=== PATIENT | female | born 1985 | race Caucasian/White ===

== ENCOUNTER 2019-11-04 10:05 | Inpatient (IN) | payer OTHER ==
[~2019-11-04] VITALS: Ht 162 cm; Wt 71.2 kg
[~2019-11-04 10:05] MED LIST: IBUP-2071 PO; PREN-217 PO; PREN1TAB80 PO
[2019-11-04] MEDS ORDERED: RINGERS SOLUTION,LACTATED 1,000 ML IV PRN (10:23)
[2019-11-04] MEDS: RINGERS SOLUTION,LACTATED 1,000 ML IV SCH ×2 (10:23→23:10)
[2019-11-04] MEDS ORDERED: OXYTOCIN 30 UNITS/LACT RINGERS 500 ML IV ONE (10:23)
[2019-11-04] MEDS ORDERED: FentaNYL CITRATE-PF 100 MCG/2 ML VIAL IVP PRN (10:30)
[2019-11-04] MEDS ORDERED: CARBOPROST TROMETHAMINE 250 MCG/ML AMP IM PRN (10:30)
[2019-11-04] MEDS ORDERED: CITRIC ACID/SODIUM CITRATE 30 ML SOLUTION UDCUP PO PRN (10:30)
[2019-11-04] MEDS ORDERED: LIDOCAINE/PF 1% 30 ML VIAL INJ PRN (10:30)
[2019-11-04] MEDS ORDERED: METOCLOPRAMIDE HCL 5 MG/ML 2 ML VIAL IVP PRN (10:30)
[2019-11-04] MEDS ORDERED: METHYLERGONOVINE MALEATE 0.2 MG/ML VIAL IM PRN (10:30)
[2019-11-04] MEDS ORDERED: MISOPROSTOL 50 MCG TABLET PO SCH (11:15)
[2019-11-04] MEDS ORDERED: AMPICILLIN SODIUM 2 GM/NS 100 ML IV ONE (11:15)
[2019-11-04 11:57] VITALS: BP 109/51
[2019-11-04 12:07] LABS: BASOPHILS % (AUTO) 0.3 % (0.0-2.0); EOSINOPHILS % (AUTO) 0.2 % (1.0-6.0); HEMATOCRIT 25.7 % (36-46); HEMOGLOBIN 8.6 g/dL (12.0-16.0); LYMPHOCYTES # (AUTO) 1.3 K/uL (1.0-4.8); LYMPHOCYTES % (AUTO) 15.2 % (22.0-44.0); MEAN CORPUSCULAR HEMOGLOBIN 25.2 pg (26.0-34.0); MEAN CORPUSCULAR HGB CONC 33.5 G/dL (31.0-37.0); MEAN CORPUSCULAR VOLUME 75 fL (80-100); MONOCYTES # (AUTO) 0.6 K/uL (0.1-1.0); MONOCYTES % (AUTO) 7.6 % (2.0-9.0); NEUTROPHILS # (AUTO) 6.4 K/uL (1.8-7.7); NEUTROPHILS % (AUTO) 76.7 % (40.0-70.0); PLATELET COUNT (AUTO) 247 K/uL (150-450); RED BLOOD CELL COUNT(AUTO) 3.43 MIL/uL (4.00-5.20); RED CELL DISTRIBUTION WIDTH 15.3 % (11.5-14.5)
[2019-11-04] MEDS: AMPICILLIN SODIUM 1 GM/NS 50 ML IV SCH ×3 (15:51→23:53)
[2019-11-04] MEDS ORDERED: OXYGEN THERAPY IH SCH (20:00)
[2019-11-05] MEDS ORDERED: ROPIVACAINE HCL/PF 0.2% 100 ML ED ONE (01:20)
[2019-11-05] MEDS ORDERED: LIDOCAINE/PF 2% 5 ML VIAL ONE (01:20)
[2019-11-05] MEDS ORDERED: ROPIVACAINE HCL/PF 0.2% 100 ML ED PRN (01:45)
[2019-11-05] MEDS ORDERED: ONDANSETRON HCL 4 MG/2 ML VIAL IVP PRN (01:45)
[2019-11-05] MEDS ORDERED: DiphenhydrAMINE HCL 50 MG/ML VIAL IVP PRN (01:45)
[2019-11-05] MEDS ORDERED: NALBUPHINE HCL 10 MG/ML VIAL IVP PRN (01:45)
[2019-11-05] MEDS: AMPICILLIN SODIUM 1 GM/NS 50 ML IV SCH (03:54)
[2019-11-05] MEDS ORDERED: OXYTOCIN 30 UNITS/LACT RINGERS 500 ML IV ONE (05:35)
[2019-11-05] MEDS ORDERED: OxyCODONE HCL/ACETAMINOPHEN 5-325 MG TABLET PO PRN ×2 (05:45)
[2019-11-05] MEDS ORDERED: BENZOCAINE 20%/MENTHOL 56 GM SPRAY CANISTER TP PRN (05:45)
[2019-11-05] MEDS ORDERED: LIDOCAINE/PF 1% 30 ML VIAL INJ PRN (05:45)
[2019-11-05] MEDS ORDERED: LANOLIN 7 GM OINTMENT TP PRN (05:45)
[2019-11-05] MEDS ORDERED: GLYCERIN/WITCH HAZEL LEAF 40 PADS JAR TP PRN (05:45)
[2019-11-05] MEDS: IBUPROFEN 800 MG TABLET PO PRN ×2 (08:17→17:34)
[2019-11-05] MEDS ORDERED: INFLUENZA VIRUS VACCINE QVS 2019-20 (3YR+)/PF 60 MCG/0.5 ML SYRINGE IM ONE (11:15)
[2019-11-05] MEDS: MAGNESIUM HYDROXIDE SUSPENSION 30 ML UDCUP PO PRN (21:31)
[2019-11-06] MEDS: IBUPROFEN 800 MG TABLET PO PRN ×2 (00:05→10:01)
[2019-11-06 07:03] LABS: BASOPHILS % (AUTO) 0.4 % (0.0-2.0); EOSINOPHILS % (AUTO) 0.8 % (1.0-6.0); HEMATOCRIT 23.6 % (36-46); HEMOGLOBIN 7.6 g/dL (12.0-16.0); LYMPHOCYTES # (AUTO) 2.2 K/uL (1.0-4.8); LYMPHOCYTES % (AUTO) 20.2 % (22.0-44.0); MEAN CORPUSCULAR HEMOGLOBIN 24.3 pg (26.0-34.0); MEAN CORPUSCULAR HGB CONC 32.1 G/dL (31.0-37.0); MEAN CORPUSCULAR VOLUME 76 fL (80-100); MONOCYTES # (AUTO) 0.8 K/uL (0.1-1.0); MONOCYTES % (AUTO) 7.5 % (2.0-9.0); NEUTROPHILS # (AUTO) 7.6 K/uL (1.8-7.7); NEUTROPHILS % (AUTO) 71.1 % (40.0-70.0); PLATELET COUNT (AUTO)-OB 216 K/uL (150-450); RED BLOOD CELL COUNT(AUTO) 3.12 MIL/uL (4.00-5.20); RED CELL DISTRIBUTION WIDTH 15.8 % (11.5-14.5)
[2019-11-06] MEDS ORDERED: IRON SUCROSE COMPLEX 200 MG in SODIUM CHLORIDE 0.9% 100 ML IV ONE (09:00)
[2019-11-06] MEDS ORDERED: IBUP-2070 PO (09:35)
[2019-11-06] MEDS: MAGNESIUM HYDROXIDE SUSPENSION 30 ML UDCUP PO PRN (10:01)
[2019-11-06] MEDS ORDERED: SENNA/DOCUSATE SODIUM 8.6-50 MG TABLET ONE (11:27)
== END 2019-11-06 11:30 | disposition home or self-care (01) | DRG 807 ==
LOC: OBSVTOIN 10:05 → 4S 10:05
PROVIDERS: ADMIT Obstetrics & Gynecology Obstetrics; ATTEND Obstetrics & Gynecology Obstetrics
PROC: 10E0XZZ Delivery of Products of Conception, External Approach (ICD-10-PCS; principal; 2019-11-05)
PROC: 3E0R3BZ Introduction of Anesthetic Agent into Spinal Canal, Percutaneous Approach (ICD-10-PCS; 2019-11-05)
PROC: 00HU33Z Insertion of Infusion Device into Spinal Canal, Percutaneous Approach (ICD-10-PCS; 2019-11-05)
PROC: 0W8NXZZ Division of Female Perineum, External Approach (ICD-10-PCS; 2019-11-05)
DX: O69.81X0 Labor and delivery complicated by cord around neck, without compression, not applicable or unspecified (principal); Z37.0 Single live birth; Z3A.40 40 weeks gestation of pregnancy; O99.02 Anemia complicating childbirth; D64.9 Anemia, unspecified
CPT/HCPCS: 86850; 86900; 86901; J0290; J1756; J2590; J2795; J3490; J7050; J7120